=== PATIENT | male | born 1965 | race Caucasian/White ===

== ENCOUNTER 2016-12-02 22:17 | Emergency (ER) | payer OTHER ==
[~2016-12-02 22:17] MED LIST: ALBUTEROL 0.5ML; AMARYL PO; AMITRIPTYLINE H25 MG PO; ANTIVERT PO; FAMOTIDINE20 MG PO; FLONASE16 GM; GABAPENTIN800 MG PO; HCTZ; IBUPROFEN800 MG PO; K-DUR20 ME1 PO; KCL PO; LIPITOR20 MG PO; LISINOPRIL20 MG PO; MAGNESIUM400 MG PO; METFORMIN HCL500 M1 PO; METOPROLOL TART25 MG PO; NAPROXEN SODIU550 MG PO; OMEPRAZOLE40 M1 PO; SINGULAIR; TAMIFLU75 M1 PO; TRAZODONE HCL100 MG PO
== END 2016-12-02 23:00 | disposition home or self-care (01) ==
LOC: CED 22:17
DX: Z53.21 Procedure and treatment not carried out due to patient leaving prior to being seen by health care provider (principal)

== ENCOUNTER → 2016-12-28 | Outpatient (CLI) | payer OTHER ==
[2016-12-28 10:10] LABS: POC - GFR >60.0 mL/min (>60)
== END | disposition home or self-care (01) ==
LOC: CMRI 09:38
PROVIDERS: Nurse Practitioner Family
DX: G62.9 Polyneuropathy, unspecified (principal)
CPT/HCPCS: 82565

== ENCOUNTER → 2016-12-31 | Outpatient (CLI) | payer OTHER ==
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
== END | disposition home or self-care (01) ==
LOC: SMRI 07:43
DX: G62.9 Polyneuropathy, unspecified (principal); R90.82 White matter disease, unspecified
CPT/HCPCS: 70553; A9581